=== PATIENT | female | born 1955 | race Hispanic/Latino ===

== ENCOUNTER 2017-10-22 09:55 | Inpatient (IN) | payer OTHER ==
[~2017-10-22] VITALS: Ht 154.9 cm; Wt 73.0 kg
[2017-10-22] MEDS ORDERED: ASPIRIN 81 MG CHEW TAB PO STA (10:17)
[2017-10-22] MEDS ORDERED: ASPIRIN 81 MG CHEW TAB PO ONE ×2 (10:30→13:00)
[2017-10-22 10:43] LABS: BASOPHILS % 0.3 % (0.0-1.0); EOSINOPHILS # (AUTO) 0.1 (0.0-0.4); EOSINOPHILS % 1.4 % (0.0-6.0); HEMATOCRIT 38.3 % (34.2-44.1); HEMOGLOBIN 12.7 g/dL (12.0-16.0); LYMPHOCYTES # (AUTO) 2.2 (1.0-3.2); LYMPHOCYTES % 33.3 % (18.0-39.1); MEAN CORPUSCULAR HGB CONC 33.2 g/dL (31-35); MEAN CORPUSCULAR VOLUME 93.4 fL (81-99); MONOCYTES # (AUTO) 0.4 (0.2-0.8); NEUTROPHILS # (AUTO) 3.9 (2.1-6.9); NEUTROPHILS % 58.7 % (38.7-80.0); PLATELET COUNT 253 x10e3/uL (140-360); RED CELL DISTRIBUTION WIDTH 11.9 % (11.7-14.4)
[2017-10-22 10:47] LABS: BILIRUBIN,URINE NEGATIVE (NEGATIVE); CLARITY,URINE SL CLOUDY (CLEAR); COLOR,URINE YELLOW (YELLOW); KETONES,URINE NEGATIVE (NEGATIVE); LEUKOCYTE ESTERASE ,URINE TRACE (NEGATIVE); NITRITE,URINE NEGATIVE (NEGATIVE); PROTEIN,URINE DIPSTICK NEGATIVE (NEGATIVE); URINE UROBILINOGEN 0.2 mg/dL (0.2 - 1)
[2017-10-22 10:53] LABS: INR 0.99; PROTHROMBIN TIME 12.3 seconds (11.9-14.5)
[2017-10-22 10:54] LABS: PARTIAL THROMBOPLASTIN TIME 28.3 seconds (23.8-35.5)
[2017-10-22 11:01] LABS: BACTERIA,URINE RARE /HPF
[2017-10-22 11:02] LABS: EPITHELIAL CELLS,URINE FEW /LPF
[2017-10-22 11:03] LABS: ALANINE AMINOTRANSFERASE 21 IU/L (0-55); ALBUMIN/GLOBULIN RATIO 1.1 (0.8-2.0); ALKALINE PHOSPHATASE 70 IU/L (40-150); ANION GAP 13.6 mmol/L (8-16); BLOOD UREA NITROGEN 15 mg/dL (7-26); BUN/CREATININE RATIO 17 (6-25); CALCIUM 9.4 mg/dL (8.4-10.2); CARBON DIOXIDE 27 mmol/L (22-29); CHLORIDE 105 mmol/L (98-107); CREATINE KINASE 126 IU/L (29-168); CREATININE, SERUM 0.88 mg/dL (0.57-1.11); EST GLOMERULAR FILTRATION RATE > 60 ML/MIN (60-); GLUCOSE 112 mg/dL (74-118); LIPASE 25 U/L (8-78); MAGNESIUM 2.2 MG/DL (1.3-2.1); POTASSIUM 3.6 mmol/L (3.5-5.1); SODIUM 142 mmol/L (136-145)
--- NOTE | 2017-10-22 11:20 | Diagnostic Imaging Report ---
PROCEDURE: A single AP view of the chest. COMPARISON: None. INDICATIONS: CHEST PAIN SHOOTING TO MID BACK FINDINGS: Lines/tubes: None. Lungs: The lungs are well inflated and clear. There is no evidence of pneumonia or pulmonary edema. Pleura: There is no pleural effusion or pneumothorax. Heart and mediastinum: The heart and the mediastinum are unremarkable. Bones: No acute bony abnormality. IMPRESSION: No acute cardiopulmonary disease. Dictated by: Jason Daigle M.D. on 10/22/2017 at 11:24 Electronically approved by: Jason Daigle M.D. on 10/22/2017 at 11:24
[2017-10-22 11:25] LABS: THYROID STIMULATING HORMONE 1.751 uIU/mL (0.350-4.940)
[2017-10-22] MEDS ORDERED: NITROGLYCERIN 0.4 MG SUBL SL PRN (13:00)
[2017-10-22] MEDS ORDERED: SODIUM CHLORIDE FLUSH 10 ML SYR INJ PRN (13:00)
[2017-10-22 15:50] VITALS: BP 133/79
[2017-10-22 16:49] VITALS: BP 133/79
[2017-10-22 17:02] VITALS: BP 133/79
[2017-10-22 18:39] LABS: CREATINE KINASE 108 IU/L (29-168)
[2017-10-22 19:20] VITALS: BP 137/93
[2017-10-22 20:35] VITALS: BP 137/93
[2017-10-22 20:37] VITALS: BP 137/93
[2017-10-23] VITALS (7 sets, daily range): BP systolic 99–137; BP diastolic 57–75
[2017-10-23 07:08] LABS: CHOL/HDL RATIO 4.1 (3.0-3.6); CHOLESTEROL 165 MD/DL (0-199); CREATINE KINASE 90 IU/L (29-168); HDL CHOLESTEROL 40 MG/DL (40-60); LDL CHOLESTEROL 104 MG/DL (60-130); TRIGLYCERIDES 105 MG/DL (0-149)
[2017-10-24] VITALS: BP 116/60
[2017-10-24 05:00] VITALS: BP 109/55
[2017-10-24] MEDS ORDERED: ACETAMINOPHEN 325 MG TAB PO PRN (08:00)
[2017-10-24 08:05] VITALS: BP 124/60
[2017-10-24 12:00] VITALS: BP 119/64
== END 2017-10-24 14:00 | disposition home or self-care (01) | DRG 313 ==
LOC: ER 09:55 → ERHOLD 13:43 → MED/SURG2 14:09
PROVIDERS: ADMIT Internal Medicine; ATTEND Internal Medicine
DX: R07.89 Other chest pain (principal); N39.0 Urinary tract infection, site not specified; E78.5 Hyperlipidemia, unspecified; R11.0 Nausea
CPT/HCPCS: 36415; 71045; 80053; 80061; 81001; 82550; 82553; 83690; 83735; 83880; 84443; 84484; 85025; 85610; 85730; 87086; 93005; 93306; 99284